=== PATIENT | female | born 1980 | race Caucasian/White ===

== ENCOUNTER → 2016-03-06 | Outpatient (REF) | payer BC ==
[~2016-03-06] MED LIST: HYDR1TAB8 PO; NO HOME MEDICATIONS
[2016-03-06 12:37] LABS: ALBUMIN 4.2 g/dL (3.4-5.0); ANION GAP 15.6 MEQ/L (3-15); CALCULATED IONIZED CALCIUM 4.2 mg/dL (3.8-4.6); TOTAL PROTEIN 7.3 g/dL (6.4-8.5)
== END ==
LOC: LAB 11:35
PROVIDERS: ATTEND Nurse Practitioner Family
DX: Z13.6 Encounter for screening for cardiovascular disorders (principal)
CPT/HCPCS: 80053; 80061

== ENCOUNTER → 2016-03-20 | Outpatient (CLI) | payer BC | LOC: RAD 09:46 | PROVIDERS: ATTEND Nurse Practitioner Family | DX: N63 Unspecified lump in breast (principal) | CPT/HCPCS: 76642; G0204 ==